=== PATIENT | male | born 1995 | race Caucasian/White ===

== ENCOUNTER → 2020-10-05 10:27 | Outpatient (BNVA) | payer OTHER, SELFPAY | PROVIDERS: Family Provider Nurse Practitioner; PCP Nurse Practitioner; Visit Provider Nurse Practitioner Family | DX: Z20.828 Contact with and (suspected) exposure to other viral communicable diseases (principal) | CPT/HCPCS: 87635 ==

== ENCOUNTER 2021-02-02 15:23 | Emergency (ER) | payer OTHER, SELFPAY ==
[2021-02-02 15:32] VITALS: BP 155/88; PULSE 96; RESP 18; TEMP 36.8; O2SAT 100; BMI 20.9
--- NOTE | 2021-02-02 17:22 | W.ED.WOUNDLC ---
HPI - Wound/Laceration General: Chief Complaint: Wound/Laceration Stated Complaint: l arm wound/laceration Time Seen by Provider: 02/02/21 16:03 Source: patient Mode of arrival: ambulatory Limitations: no limitations History of Present Illness: HPI narrative: Patient is a 25 year old male who presents to the ED with left arm lacerations. He states that he cut himself while cooking more than once. It is unlikely that this is a true account of the events, however he denied suicidal or homicidal ideation. He is here to have his wound evaluated and cared for. Place: home Patient tetanus UTD: No Context: accidental Associated symptoms: Denies chills, fever(s), foreign body sensation, inability to move, nausea, numbness, pain, syncope or vomiting Review of Systems General: Reports: 10 or more systems reviewed and unremarkable except in HPI and below Const: Denies: fever(s) or chills Card: Denies: syncope GI: Denies: nausea or vomiting PFS ED PFSH: Family History (Reviewed 02/20/21 @ 10:54 by Juan Diego Denise MD, [facility] [place]) Other Diabetes Social History (Reviewed 02/20/21 @ 10:54 by Juan Diego Denise MD, [facility] [place]) Smoking and tobacco status: current every day smoker Alcohol intake: current Alcohol intake frequency: holidays/special occasions only Physical Exam Const: COMMON NORMALS: no acute distress, average body habitus, patient oriented x3, no limitations, healthy appearing, alert and well nourished Neck/C-Spine: COMMON NORMALS: no meningeal signs and no JVD Resp: COMMON NORMALS: normal respiratory effort, No retractions, No use of accessory muscles, clear to auscultation bilaterally and percussion normal AUSCULTATION: clear to auscultation bilaterally PERCUSSION: percussion normal Cardio: COMMON NORMALS: no JVD, regular rate, regular rhythm, S1 normal heart sound present, S2 normal heart sound present, No gallops present (Cardio), No clicks present (Cardio), No murmurs present (Cardio), No rub (Cardio) and Peripheral pulses 2+ throughout RATE: regular rate RHYTHM: regular rhythm HEART SOUNDS: S1 normal heart sound present and S2 normal heart sound present PERIPHERAL PULSES: Peripheral pulses 2+ throughout GI: COMMON NORMALS: Normal to inspection, nondistended, normoactive bowel sounds present, Soft to palpation, non-tender, No hepatosplenomegaly present, no masses and no bruits PALPATION: Yes Soft to palpation and Yes No hepatosplenomegaly present Extremity: COMMON NORMALS: normal to inspection, full ROM, capillary refill normal, no calf tenderness and no pedal edema Neuro: COMMON NORMALS: patient oriented x3 SENSORIUM/ORIENTATION: Yes alert MENINGEAL SIGNS: Yes no meningeal signs Skin: COMMON NORMALS: no rashes or lesions noted, no wounds, turgor normal, no jaundice, no petechiae and no mottling GENERAL SKIN EXAM: no rashes or lesions noted and turgor normal TRAUMA: laceration irregular, involves subcutaneous tissue, involves muscle tissue, motor nerve function intact and sensation intact; no pulsatile bleeding Procedures Laceration Laceration 1: Site: upper extremity Side (If applicable): left Description: irregular Depth: involves muscle layer Local Anesthetic: lidocaine 1% Amount of anesthesia used (mL): 10 Pre-repair: wound explored and irrigated extensively Skin layer closed with: nylon Size (cm): 4-0 Number of sutures: 10 Technique: simple, interrupted Subcutaneous layer closed with: vicryl Size: 4-0 Number of sutures: 3 Technique: simple, interrupted Muscle layer closed with: vicryl Size: 4-0 Number of sutures: 2 Course Reevaluation(s): Reevaluation #1: Wound care instructions given to the patient. He voiced understanding and all questions answered. Time: 17:22 Vital Signs: Vital signs: Vital Signs Temperature 98.2 F 02/02/21 17:54 Pulse Rate 96 02/02/21 15:32 Respiratory Rate 18 02/02/21 17:54 Blood Pressure 155/88 02/02/21 15:32 Pulse Oximetry 100 02/02/21 17:54 MDM - Wound/Laceration MDM Narrative: Medical decision making narrative: Patient who presented with an accidental laceration to his left forearm. Wounds were thoroughly irrigated, cleaned and the wounds closed. Wound care instructions given to him. He was given a dose of tetanus vaccine in the ED. Medical Records: Attestation: I reviewed the patient's medical records. Discharge Plan Discharge Patient Disposition: Home Clinical Impression: Forearm laceration Condition: Stable Discharge Orders: Discharge ED (Routine); Ordered 02/02/21 Ordered By: Juan Diego Denise Discharge Diet: Usual diet Discharge Activity: Increase activity as tolerated Patient Instructions: Suture Care (ED), Laceration (ED) Activity Restrictions/Additional Instructions: Return for any new or worsening symptoms. Follow-up with your primary care provider within 3 days for wound evaluation. Have the stitches taken out in 10 to 14 days. Take the antibiotic as prescribed as prophylaxis for infection. No lifting greater than 10 pounds over the next 1 week. Stand Alone Forms: Work/School Release Coding Level of Care Code ED Recreational Counselor for Georges Singh
[2021-02-02] MEDS: tetanus-dipt-pertussis 0.5 mL SDV IM (17:44)
[2021-02-02 17:54] VITALS: RESP 18; TEMP 36.8; O2SAT 100
== END 2021-02-02 17:55 | disposition home or self-care (01) ==
PROVIDERS: Emergency Provider Family Medicine
DX: S51.812A Laceration without foreign body of left forearm, initial encounter (principal); F17.210 Nicotine dependence, cigarettes, uncomplicated; W26.9XXA Contact with unspecified sharp object(s), initial encounter; Z23 Encounter for immunization
CPT/HCPCS: 13121; 13122; 90471; 90715; 99283

== ENCOUNTER 2021-12-29 20:48 | Emergency (ER) | payer SELFPAY ==
--- NOTE | 2021-12-29 20:51 | USR_ITS ---
PROCEDURE INFORMATION: Exam: US Scrotum Exam date and time: 12/29/2021 9:23 PM Age: 26 years old Clinical indication: Scrotum pain; Additional info: R testicle pain TECHNIQUE: Imaging protocol: Real-time ultrasound of the scrotum and contents with color Doppler and image documentation. COMPARISON: CT abdomen pelvis w con* [id number] 04/29/2019 10:49 PM FINDINGS: Right testicle: No mass. No torsion. Vascularity is present. Possibly mild hypervascularity. Left testicle: Normal. No mass. No torsion. Normal vascular flow. Epididymides: Mild thickening with hypervascularity of the right epididymis. Unremarkable left epididymis. Scrotum: Small volume right scrotum hydrocele simple appearance. US/US scrotum [id number] IMPRESSION: 1. Suspect right scrotum epididymitis. Orchitis not excluded. 2. Negative for testicular torsion.
[2021-12-29 20:55] VITALS: BP 138/81; PULSE 81; RESP 16; TEMP 36.6; O2SAT 95; BMI 21.6
--- NOTE | 2021-12-29 21:16 | W.ED.MALEGU ---
HPI - Male Genitourinary General: Chief complaint: Urogenital-Male Stated complaint: R testicle pain and swelling Time Seen by Provider: 12/29/21 21:11 Source: patient Mode of arrival: ambulatory Limitations: no limitations History of Present Illness: 26-year-old male states that he was lifting a heavy wench 3 days ago and felt like he strained his right groin. Since then he states been having increasing right groin and testicle pain. States today is testicles became quite swollen and increasingly tender and painful. States pain is sharp in nature and rates it a 8 out of 10 denies any dysuria or discharge denies any fevers. Associated symptoms: Deny nausea or vomiting Review of Systems Const: Denies: fever(s), chills, body aches or change in appetite Eyes: Denies: blurry vision or eye discomfort ENMT: Denies: throat pain or dental pain Card: Denies: chest pain Resp: Denies: dyspnea GI: Denies: abdominal pain, nausea, vomiting or diarrhea : Reports: testicular pain Musc: Denies: neck pain or back pain Skin/Breast: Denies: rash Neuro: Denies: headache(s) Psych: Denies: depression Benjamin/Lymph: Denies: easy bruising All/Imm: Denies: urticaria PFSH ED PFSH: Family History Other Diabetes Social History Smoking and tobacco status: current every day smoker Alcohol intake: current Alcohol intake frequency: holidays/special occasions only Physical Exam Const: COMMON NORMALS: no acute distress, patient oriented x3 and healthy appearing HENMT: COMMON NORMALS: normocephalic and atraumatic HEAD & SCALP: normocephalic and atraumatic Eye: COMMON NORMALS: Equal, round and reactive pupils present and EOMs intact bilaterally PUPIL: Yes Equal, round and reactive pupils present Neck/C-Spine: COMMON NORMALS: full ROM and supple Chest: COMMONS NORMALS: normal inspection of the chest and normal palpation of entire chest wall Resp: COMMON NORMALS: normal respiratory effort, No retractions, No use of accessory muscles and clear to auscultation bilaterally AUSCULTATION: clear to auscultation bilaterally Cardio: COMMON NORMALS: regular rate, regular rhythm and No murmurs present (Cardio) RATE: regular rate RHYTHM: regular rhythm GI: COMMON NORMALS: Normal to inspection, nondistended, normoactive bowel sounds present, Soft to palpation, non-tender and no masses PALPATION: Yes Soft to palpation : OTHER: Swelling along with tenderness to right testicle Extremity: COMMON NORMALS: normal to inspection and full ROM Neuro: COMMON NORMALS: patient oriented x3, moves all extremities and no focal motor deficits Psych: COMMON NORMALS: mental status grossly normal, Normal thought process present and cooperative THOUGHT PROCESS: Normal thought process present Skin: COMMON NORMALS: no rashes or lesions noted and no wounds GENERAL SKIN EXAM: no rashes or lesions noted Course Vital Signs: Vital signs: Vital Signs Temperature 97.8 F 12/29/21 20:55 Pulse Rate 81 12/29/21 20:55 Respiratory Rate 16 12/29/21 20:55 Blood Pressure 138/81 12/29/21 20:55 Pulse Oximetry 95 12/29/21 20:55 MDM - Male Medical Decision Making Patient presents here with right testicle pain ultrasound here does show epididymitis likely causing his pain no signs of torsion we will place him on antibiotics pain meds given follow-up with urology he is to return if worsening he understands agrees to plan. Lab Data : 12/29/21 21:19 12/29/21 21:19 Radiology Impressions Scrotum Ultrasound 12/29/21 20:51 IMPRESSION: 1. Suspect right scrotum epididymitis. Orchitis not excluded. 2. Negative for testicular torsion. Laboratory Results WBC 11.8 10^3/uL (4.0-10.0) H 12/29/21 21:19 RBC 5.32 10^6/uL (4.1-5.3) H 12/29/21 21:19 Hgb 15.9 g/dL (11.7-16.6) 12/29/21 21: Hct 47.8 % (42.0-52.0) 12/29/21 21:19 MCV 89.8 fl (80-94) 12/29/21 21: MCH 29.9 pg (28.0-34.0) 12/29/21 21: MCHC 33.3 g/dL (30.0-36.0) 03/21/22 21:19 RDW 13.2 % (12.1-15.1) 12/29/21 21:19 Plt Count 302 10^3/cmm (130-400) 12/29/21 21:19 MPV 10.1 fL (7.4-10.4) 12/29/21 21:19 Neut % (Auto) 66.0 % 12/29/21 21:19 Lymph % (Auto) 21.2 % 12/29/21 21:19 Lander % (Auto) 9.3 % 12/29/21 21:19 Eos % (Auto) 1.3 % 12/29/21 21:19 Baso % (Auto) 0.8 % 12/29/21 21:19 Neut # (Auto) 7.80 10^3/uL (1.8-7.7) H 12/29/21 21:19 Lymph # (Auto) 2.5 10^3/uL (0.8-4.8) 12/29/21 21:19 Lander # (Auto) 1.1 10^3/uL (0.2-0.9) H 12/29/21 21:19 Eos # (Auto) 0.2 10^3/uL (0.0-0.8) 12/29/21 21:19 Baso # (Auto) 0.1 10^3/uL (0.0-0.1) 12/29/21 21:19 Nucleated RBC % (auto) 0 % 12/29/21 21: Nucleated RBCs # 0.0 /100WBC 12/29/21 21:19 Sodium 137 mmol/L (136-145) 12/29/21 21:19 Potassium 4.4 mmol/L (3.5-5.1) 12/29/21 21:19 Chloride 97 mmol/L (98-107) L 12/29/21 21:19 Carbon Dioxide 30 mmol/L (22-29) H 12/29/21 21:19 Anion Gap 14.4 (5-19) 12/29/21 21:19 BUN 9 mg/dL (6-20) 12/29/21 21:19 Creatinine 1.0 mg/dL (0.7-1.2) 12/29/21 21:19 GFR Calculation 89.6 mL/min (90-130) L 12/29/21 21:19 Glucose 87 mg/dL (65-115) 12/29/21 21:19 Calculated Osmolality 282 mOsm/kg (285-295) L 12/29/21 21:19 Calcium 9.5 mg/dL (8.5-10.5) 12/29/21 21:19 Total Bilirubin 0.2 mg/dL (0.15-1.2) 12/29/21 21:19 AST 15 U/L (0-40) 12/29/21 21:19 ALT 12 U/L (0-41) 12/29/21 21:19 Alkaline Phosphatase 108 IU/L (40-130) 12/29/21 21:19 Total Protein 8.0 g/dL (6.6-8.7) 12/29/21 21:19 Albumin 4.6 g/dL (3.5-5.2) 12/29/21 21:19 Globulin 3.4 g/dL (1.3-4.6) 12/29/21 21:19 Discharge Plan Discharge Patient Disposition: Home Clinical Impression: Epididymitis Condition: Stable Prescriptions: New hydrocodone-acetaminophen 5-325 mg tablet 1 tab PO Q6H PRN (Reason: pain) Qty: 14 0RF doxycycline hyclate 100 mg tablet 100 mg PO BID 10 Days Qty: 20 0RF ondansetron 4 mg tablet,disintegrating 4 mg PO Q6H PRN (Reason: nausea and vomiting) Qty: 14 0RF Discharge Orders: Discharge ED (Routine); Ordered 12/29/21 Ordered By: Dora Valdivia Referrals: Nav Mcduffie MD [Physician] - 1-3 days Discharge Diet: Advance as tolerated Discharge Activity: Resume usual activity Patient Instructions: Epididymitis (ED), Opioid Safety Coding Level of Care Code ED Wheel Braider for Chg Fwd Exam Comprehensive
[2021-12-29 21:25] LABS: Basophils # 0.1 10^3/uL (0.0-0.1); Basophils % 0.8 %; Eosinophils # 0.2 10^3/uL (0.0-0.8); Eosinophils % 1.3 %; Hematocrit 47.8 % (42.0-52.0); Hemoglobin 15.9 g/dL (11.7-16.6); Lymphocytes # 2.5 10^3/uL (0.8-4.8); Lymphocytes % 21.2 %; Mean Corpuscular HGB Conc 33.3 g/dL (30.0-36.0); Mean Corpuscular Hemoglobin 29.9 pg (28.0-34.0); Mean Corpuscular Volume 89.8 fl (80-94); Mean Platelet Volume 10.1 fL (7.4-10.4); Monocytes # 1.1 10^3/uL (0.2-0.9); Monocytes % 9.3 %; Nucleated Red Blood Cells % 0 %; Platelet Count 302 10^3/cmm (130-400); Red Blood Count 5.32 10^6/uL (4.1-5.3); Red Cell Distribution Width 13.2 % (12.1-15.1); White Blood Count 11.8 10^3/uL (4.0-10.0)
[2021-12-29 21:30] VITALS: RESP 18
[2021-12-29] MEDS: ondansetron 2 mg/ML SDV 2 mL 4 MG IVP (21:30)
[2021-12-29] MEDS: morphine 4 mg/mL SDV 1 mL IVP (21:30)
[2021-12-29 21:46] LABS: Alanine Aminotransferase 12 U/L (0-41); Albumin Level 4.6 g/dL (3.5-5.2); Alkaline Phosphatase 108 IU/L (40-130); Anion Gap 14.4 (5-19); Aspartate Amino Transferase 15 U/L (0-40); Blood Urea Nitrogen 9 mg/dL (6-20); Calcium 9.5 mg/dL (8.5-10.5); Carbon Dioxide 30 mmol/L (22-29); Chloride 97 mmol/L (98-107); Globulin 3.4 g/dL (1.3-4.6); Glomerular Filtration Rate 89.6 mL/min (90-130); Glucose 87 mg/dL (65-115); Osmolality Calculated 282 mOsm/kg (285-295); Potassium 4.4 mmol/L (3.5-5.1); Sodium 137 mmol/L (136-145); Total Bilirubin 0.2 mg/dL (0.15-1.2)
[2021-12-29] MEDS: doxycycline 100 mg Tablet PO (22:21)
--- NOTE | 2021-12-30 09:56 | DCPLANNER ---
Addendum entered by Sherrell Velarde 03/06/22 18:01: Patient had a follow up appointment scheduled for 02.20.22 with urology - patient did not attend appointment. Addendum entered by Sherrell Velarde 12/31/21 11:15: Patient has a follow up appointment scheduled for Sunday, February 20, 2022 at 8:[address] Mcduffie. Clinic will call patient with appointment information. Original Note: police manager had message to schedule a follow up appointment for patient with Dr. Mcduffie. police manager emailed patients information to Nathaniel Johnson and Julie in the office of Dr. Mcduffie. Patients information will be printed and reviewed. Clinic will call patient with appointment information.
== END 2021-12-29 22:21 | disposition home or self-care (01) ==
PROVIDERS: Emergency Provider Emergency Medicine
DX: N45.1 Epididymitis (principal); F17.210 Nicotine dependence, cigarettes, uncomplicated
CPT/HCPCS: 76870; 80053; 85025; 99282; J2270; J2405

== ENCOUNTER 2022-06-22 12:56 | Emergency (ER) | payer SELFPAY ==
[2022-06-22 13:00] VITALS: BP 123/73; PULSE 84; RESP 16; TEMP 36.9; O2SAT 99; BMI 20.9
--- NOTE | 2022-06-22 13:28 | XR_ITS ---
WS: [id number] XR forearm LT 2V [id number] REASON FOR EXAM: fall injury from skateboarding FINDINGS: Elbow as previously reported. Remainder of the radius and ulna are intact. No distal radioulnar dislocation. XR/XR forearm LT 2V [id number] IMPRESSION: No acute abnormality.
--- NOTE | 2022-06-22 13:28 | XR_ITS ---
WS: [id number] XR elbow LT min 3V* [id number] REASON FOR EXAM: fall injury from skateboarding FINDINGS: No evidence of joint effusion. Joint spaces of the elbow joint are well preserved. No fracture identified. Radiodense angular presumed foreign body in the soft tissue dorsal to the proximal ulna. XR/XR elbow LT min 3V* [id number] IMPRESSION: No fracture or dislocation. Presumed radiopaque foreign body as above.
--- NOTE | 2022-06-22 13:30 | W.ED.EXTPRO ---
Documented by User: [email or web address] Feldman 06/23/22 07:29 HPI - Extremity Problem General: Chief complaint: Extremity Injury, Upper Stated complaint: Left arm injury, elbow lac Time Seen by Provider: 06/22/22 13:14 History of Present Illness: Patient is a 26-year-old male that comes to the ED with left elbow injury. Patient says approximately 2 days ago he was riding on a skateboard down a hill and fell off skateboard hitting left elbow on the ground. Denies any head trauma or loss of consciousness. He is now having pain and swelling in the left elbow and left forearm. He rates his pain a 6 out of 10 but it increases if he does any movement with left arm. He has an abrasion to his left elbow. Patient reports pulling out some rocks/gravel from wound and then cleaned with hydrogen peroxide and then put antibiotic ointment on it. Its starting to have some surrounding redness and a little bit of purulent drainage. Patient states he is up-to-date on his tetanus. Associated symptoms: Deny chest pain, fever(s) or rash Review of Systems Const: Denies: fever(s), chills or fatigue Eyes: Denies: change in vision or eye discomfort ENMT: Denies: throat pain, odynophagia, nasal discharge or nasal congestion Card: Denies: chest pain, palpitations, edema, swelling of feet/ankles, dyspnea on exertion or orthopnea Resp: Denies: dyspnea, productive cough or non-productive cough GI: Denies: abdominal pain, nausea, vomiting, diarrhea, constipation or hematochezia : Denies: flank pain, difficulty urinating, dysuria or hematuria Musc: Reports: extremity pain (Left elbow and forearm) and extremity swelling (Left elbow and forearm); Denies: neck pain or back pain Skin/Breast: Reports: new lesions (Left elbow abrasion); Denies: rash Neuro: Denies: headache(s), numbness in extremities or weakness in extremities [facility] ED PFSH: Medical History Varicocele Family History Mother No problems noted. Father , at age 56 Cancer Other Diabetes Social History Smoking and tobacco status: current every day smoker Alcohol intake: current Alcohol intake frequency: 0-2 Drinks per Day Lives independently: No Household members: family Housing: House Marital status: Single Number of children: 0 Current occupational status: employed History of recent travel: No Physical Exam Const: COMMON NORMALS: patient oriented x3, healthy appearing and alert GENERAL APPEARANCE: cooperative and comfortable HENMT: COMMON NORMALS: normocephalic HEAD & SCALP: normocephalic MOUTH: Normal oral and palatal mucosa present THROAT: posterior oropharynx normal and uvula midline Neck/C-Spine: COMMON NORMALS: supple GENERAL: Yes normal visual inspection Resp: COMMON NORMALS: normal respiratory effort, No retractions, No use of accessory muscles and clear to auscultation bilaterally AUSCULTATION: clear to auscultation bilaterally Cardio: COMMON NORMALS: regular rate, regular rhythm, S1 normal heart sound present, S2 normal heart sound present, No gallops present (Cardio), No clicks present (Cardio), No murmurs present (Cardio) and Peripheral pulses 2+ throughout RATE: regular rate RHYTHM: regular rhythm HEART SOUNDS: S1 normal heart sound present and S2 normal heart sound present PERIPHERAL PULSES: Peripheral pulses 2+ throughout GI: COMMON NORMALS: Normal to inspection, nondistended, normoactive bowel sounds present, Soft to palpation, non-tender and no masses PALPATION: Yes Soft to palpation : COMMON NORMALS: Yes no CVA tenderness BLADDER/KIDNEY EXAM: Yes no CVA tenderness Back/Pelvis: COMMON NORMALS: no CVA tenderness Extremity: NARRATIVE EXTREMITY EXAM: Left elbow?swelling and tenderness around olecranon process of elbow. Limited range of motion due to pain. Neurovascular tact distally. GENERAL: Yes normal exam except as noted Neuro: COMMON NORMALS: patient oriented x3 SENSORIUM/ORIENTATION: Yes alert GAIT: Yes Normal gait present Skin: NARRATIVE SKIN EXAM: Superficial abrasion to left elbow?surrounding erythema and warmth noted. Small amount of purulent drainage present. Findings suggestive of some developing cellulitis. GENERAL SKIN EXAM: dry skin Course Vital Signs: Vital signs: Vital Signs Temperature 98.4 F 06/22/22 13:00 Pulse Rate 84 06/22/22 13:00 Respiratory Rate 16 06/22/22 13:00 Blood Pressure 123/73 06/22/22 13:00 Pulse Oximetry 99 06/22/22 13:00 Oxygen Delivery Me thod 06/22/22 13:00 MDM - Extremity (Nontraumatic) Medical Decision Making Patient is a 26-year-old male comes to the ED with left elbow injury. Injury occurred 2 days ago and patient says he was riding a skateboard and fell landing on left elbow. He has some pain, swelling and an abrasion to the left elbow. He reports pulling some rocks/gravel out of wound. Vitals are stable. Patient has some left elbow swelling, erythema and tenderness. He is neurovascular tact distally. Abrasion wound on left elbow appears like it is developing cellulitis. X-ray of left elbow on left forearm showed no acute fractures or dislocations but did note a radiopaque foreign body in soft tissue of elbow area. I placed an order with case management for patient to be referred to orthopedic doctor for follow-up and management of foreign body left elbow. He was diagnosed with cellulitis of the left elbow and foreign body in skin of left elbow. He was discharged home with a prescription for cephalexin. Return to ED precautions given. Patient understood and agreed with plan. Lab Data Radiology Impressions Elbow X-Ray 06/22/22 13:28 IMPRESSION: No fracture or dislocation. Presumed radiopaque foreign body as above. Forearm X-Ray 06/22/22 13:28 IMPRESSION: No acute abnormality. Discharge Plan Discharge Patient Disposition: Home Clinical Impression: Foreign body in skin of left elbow region, Cellulitis of left elbow Condition: Stable Prescriptions: New cephalexin 500 mg capsule 500 mg PO Q6H 7 Days Qty: 28 0RF No Action doxycycline hyclate 100 mg tablet 100 mg PO BID Qty: 60 1RF hydrocodone-acetaminophen 5-325 mg tablet 1 tab PO Q6H PRN (Reason: pain) Qty: 14 0RF ondansetron 4 mg tablet,disintegrating 4 mg PO Q6H PRN (Reason: nausea and vomiting) Qty: 14 0RF Discharge Orders: Discharge ED (Routine); Ordered 06/22/22 Ordered By: Guy Kendrick Referrals: Nav Mcduffie MD [Primary Care Provider] - Discharge Diet: Regular Discharge Activity: Increase activity as tolerated Patient Instructions: Soft Tissue Foreign Body (ED), Cellulitis (ED) Activity Restrictions/Additional Instructions: Follow-up with medical provider as directed. Case management should be contacting you in the next several days to set up an appointment with Ortho for follow-up on left elbow foreign body. Clean abrasion on elbow daily with soap and water and apply triple antibiotic ointment and cover with bandage. Take medications as prescribed. Return to the ER or your medical provider if condition worsens. Please read and understand discharge instructions. Thank you for choosing [facility] for your healthcare needs today. Please realize this is an emergency room and that we are providing you with a medical screening exam and this may not be complete and all inclusive of all the testing and or work up that you may need to determine your ailment or severity of your illness. It is very important that you follow up as instructed or that you return to the Emergency Department should you have concerns or if your condition changes or worsens in any way. Coding Level of Care Code ED Fruit Or Nut Farmer for Chg Fwd Exam Comprehensive Documented by User: Juan Almanzar DO 06/23/22 13:36 HPI - Extremity Problem General: Chief complaint: Extremity Injury, Upper Stated complaint: Left arm injury, elbow lac Time Seen by Provider: 06/22/22 13:14 [facility] ED PFSH: Medical History Varicocele Family History Mother No problems noted. Father , at age 56 Cancer Other Diabetes Social History Smoking and tobacco status: current every day smoker Alcohol intake: current Alcohol intake frequency: 0-2 Drinks per Day Lives independently: No Household members: family Housing: House Marital status: Single Number of children: 0 Current occupational status: employed History of recent travel: No Course Vital Signs: Vital signs: Vital Signs Temperature 98.4 F 06/22/22 13:00 Pulse Rate 84 06/22/22 13:00 Respiratory Rate 16 06/22/22 13:00 Blood Pressure 123/73 06/22/22 13:00 Pulse Oximetry 99 06/22/22 13:00 Oxygen Delivery Me thod 06/22/22 13:00 MDM - Extremity (Nontraumatic) Medical Decision Making Patient is a 26-year-old male comes to the ED with left elbow injury. Injury occurred 2 days ago and patient says he was riding a skateboard and fell landing on left elbow. He has some pain, swelling and an abrasion to the left elbow. He reports pulling some rocks/gravel out of wound. Vitals are stable. Patient has some left elbow swelling, erythema and tenderness. He is neurovascular tact distally. Abrasion wound on left elbow appears like it is developing cellulitis. X-ray of left elbow on left forearm showed no acute fractures or dislocations but did note a radiopaque foreign body in soft tissue of elbow area. I placed an order with case management for patient to be referred to orthopedic doctor for follow-up and management of foreign body left elbow. He was diagnosed with cellulitis of the left elbow and foreign body in skin of left elbow. He was discharged home with a prescription for cephalexin. Return to ED precautions given. Patient understood and agreed with plan. Chart reviewed and patient discussed with midlevel. Agree with assessment and plan. Lab Data Radiology Impressions Elbow X-Ray 06/22/22 13:28 IMPRESSION: No fracture or dislocation. Presumed radiopaque foreign body as above. Forearm X-Ray 06/22/22 13:28 IMPRESSION: No acute abnormality. Discharge Plan Discharge Patient Disposition: Home Clinical Impression: Foreign body in skin of left elbow region, Cellulitis of left elbow Condition: Stable Prescriptions: New cephalexin 500 mg capsule 500 mg PO Q6H 7 Days Qty: 28 0RF No Action doxycycline hyclate 100 mg tablet 100 mg PO BID Qty: 60 1RF hydrocodone-acetaminophen 5-325 mg tablet 1 tab PO Q6H PRN (Reason: pain) Qty: 14 0RF ondansetron 4 mg tablet,disintegrating 4 mg PO Q6H PRN (Reason: nausea and vomiting) Qty: 14 0RF Discharge Orders: Discharge ED (Routine); Ordered 06/22/22 Ordered By: Guy Kendrick Referrals: Nav Mcduffie MD [Primary Care Provider] - Discharge Diet: Regular Discharge Activity: Increase activity as tolerated Patient Instructions: Soft Tissue Foreign Body (ED), Cellulitis (ED) Activity Restrictions/Additional Instructions: Follow-up with medical provider as directed. Case management should be contacting you in the next several days to set up an appointment with Ortho for follow-up on left elbow foreign body. Clean abrasion on elbow daily with soap and water and apply triple antibiotic ointment and cover with bandage. Take medications as prescribed. Return to the ER or your medical provider if condition worsens. Please read and understand discharge instructions. Thank you for choosing [facility] for your healthcare needs today. Please realize this is an emergency room and that we are providing you with a medical screening exam and this may not be complete and all inclusive of all the testing and or work up that you may need to determine your ailment or severity of your illness. It is very important that you follow up as instructed or that you return to the Emergency Department should you have concerns or if your condition changes or worsens in any way. Coding Level of Care Code ED Fruit Or Nut Farmer for Georges Singh Exam Comprehensive
[2022-06-22] MEDS: cephALEXin 500 mg Capsule PO (13:44)
[2022-06-22] MEDS: HYDROcodone-acetaminophen 7.5-325 mg Tablet 1 TAB PO (13:44)
--- NOTE | 2022-06-23 14:30 | DCPLANNER ---
Addendum entered by Sherrell Velarde 06/29/22 15:23: Patient had a follow up appointment scheduled with ortho - patient did attend appointment. Addendum entered by Sherrell Velarde 06/24/22 12:32: Patient has a follow up appointment scheduled for Sunday June 26, [address]22 at 9:[address] Gutierres at ortho. Clinic will call patient with appointment information. Original Note: manager wound had message to schedule a follow up appointment for patient with ortho. manager wound sent patients information to the front office staff at ortho. Patients information will be printed and reviewed. Clinic will call patient with appointment information.
== END 2022-06-22 14:40 | disposition home or self-care (01) ==
PROVIDERS: Emergency Provider Physician Assistant; PCP Urology
DX: M79.5 Residual foreign body in soft tissue (principal); L03.114 Cellulitis of left upper limb; F17.210 Nicotine dependence, cigarettes, uncomplicated
CPT/HCPCS: 73080; 73090; 99283

== ENCOUNTER → 2023-01-12 09:44 | Outpatient (BNVA) | payer SELFPAY | PROVIDERS: PCP Urology; Visit Provider Nurse Practitioner Family | DX: R30.0 Dysuria (principal); R39.9 Unspecified symptoms and signs involving the genitourinary system | CPT/HCPCS: 81000; 87491; 87591 ==

== ENCOUNTER → 2023-05-25 10:29 | Outpatient (BNVA) | payer SELFPAY | PROVIDERS: PCP Urology; Visit Provider Student in an Organized Health Care Education/Training Program | DX: S59.902A Unspecified injury of left elbow, initial encounter; V00.131A Fall from skateboard, initial encounter; M79.5 Residual foreign body in soft tissue | CPT/HCPCS: 73070 ==

== ENCOUNTER 2023-08-18 21:45 | Emergency (ER) | payer SELFPAY ==
[2023-08-18 21:49] VITALS: BP 124/81; PULSE 80; RESP 16; TEMP 36.6; O2SAT 98; BMI 22.3
--- NOTE | 2023-08-18 22:04 | ED_ITS ---
HPI - Skin/Abscess/Foreign Bdy General: Chief complaint: Skin/Abscess/Foreign Body Stated complaint: Cist on Rt side of Neck Time Seen by Provider: 08/18/23 22:04 History of Present Illness: 28-year-old male patient comes in for swelling to the right posterior neck. Patient reports having a pimple-like lesion to his neck and had someone tried to pop it this evening and since then he has had increasing swelling to the area. Patient appears nontoxic. Patient appears in mild to moderate pain. Associated symptoms: Deny fever(s) Review of Systems General: Reports: 10 or more systems reviewed and unremarkable except in HPI and below Const: Denies: fever(s) Skin/Breast: Reports: changing lesions PFSH ED PFSH: Medical History Varicocele Family History Mother No problems noted. Father , at age 56 Cancer Other Diabetes Social History Smoking and tobacco/nicotine status: never used tobacco/nicotine Alcohol intake: current Alcohol intake frequency: 0-2 Drinks per Day Substance/Drug Use: current Lives independently: No Household members: family Housing: House Marital status: Single Number of children: 0 Current occupational status: employed Physical Exam Const: COMMON NORMALS: alert HENMT: COMMON NORMALS: normocephalic HEAD & SCALP: normocephalic MOUTH: Normal oral and palatal mucosa present Neck/C-Spine: CERVICAL SPINE: Yes cervical ROM normal Resp: COMMON NORMALS: clear to auscultation bilaterally AUSCULTATION: clear to auscultation bilaterally Cardio: COMMON NORMALS: regular rate RATE: regular rate GI: COMMON NORMALS: non-tender : COMMON NORMALS: Yes no CVA tenderness BLADDER/KIDNEY EXAM: Yes no CVA tenderness Back/Pelvis: COMMON NORMALS: no CVA tenderness Extremity: COMMON NORMALS: full ROM Neuro: SENSORIUM/ORIENTATION: Yes alert Skin: LESIONS: lesion noted (Right posterior neck. Crusted lesion with soft tissue swelling) Course Vital Signs: Vital signs: Vital Signs Temperature 97.8 F 08/18/23 21:49 Pulse Rate 80 08/18/23 21:49 Respiratory Rate 16 08/18/23 21:49 Blood Pressure 124/81 08/18/23 21:49 Pulse Oximetry 98 08/18/23 21:49 Oxygen Delivery Me thod Room Air 08/18/23 21:49 MDM - Skin/Abscess/Foreign Bdy Medicial Decision Making Patient comes in due to a increased discomfort and pain after having someone in try to drain a pimple on the posterior neck. On exam patient has a crusted lesion with some surrounding erythema and swelling. No ballottement or fluctuance is noted to the area. Differential diagnosis includes abscess, folliculitis, cellulitis. We will treat patient for folliculitis/cellulitis with Bactrim and mupirocin ointment. Instructed patient not to poke or prod at the lesion. If lesion seems to become more fluid-filled he should return to the ER for to have it evaluated further and possibly drained. Patient reported understanding of care plan and need for follow-up or return to the ER. No radiology studies performed this visit Discharge Plan Discharge Patient Disposition: Home Clinical Impression: Folliculitis Condition: Stable Prescriptions: New sulfamethoxazole-trimethoprim 800-160 mg tablet 1 tab PO BID 7 Days Qty: 14 0RF ibuprofen 800 mg tablet 800 mg PO Q8H PRN (Reason: pain and inflammation) Qty: 20 0RF hydrocodone-acetaminophen 5-325 mg tablet 1 tab PO Q8H PRN (Reason: pain (scale score 7-10)) Qty: 5 0RF No Action promethazine-DM 6.25-15 mg/5 mL syrup 5 ml PO Q4H PRN (Reason: cough) Qty: 118 0RF Rx Instructions: Do not exceed more than 30ml/24hour period (6 doses) doxycycline hyclate 100 mg tablet 100 mg PO BID 7 Days Qty: 14 0RF Discharge Orders: Discharge ED (Routine); Ordered 08/18/23 Ordered By: Gen Palacios Discharge Diet: Usual diet Discharge Activity: Increase activity as tolerated Patient Instructions: Folliculitis (ED) Activity Restrictions/Additional Instructions: Apply mupirocin antibiotic ointment twice daily to the lesions until healed. Take oral antibiotic sulfamethoxazole?trimethoprim 1 tablet twice daily for 7 days. Use ibuprofen 800 mg 1 tablet 3 times a day as needed for pain and inflammation. Use hydrocodone for severe pain. Drink plenty of water with medications. Follow-up with primary care for recheck. Return to ED for worsening symptoms such as high fever, increasing swelling and fluid to the lesion. Or new concerns. Coding Level of Care Code ED Cloud Consultant for Georges Singh
[2023-08-18] MEDS: HYDROcodone-acetaminophen 5-325 mg Tablet 1 TAB PO (22:26)
[2023-08-18] MEDS: mupirocin oint 22 gm 1 APPLIC TOPICAL (22:26)
[2023-08-18] MEDS: sulfamethoxazole-trimeth DS 160-800 mg Tablet 1 TAB PO (22:26)
== END 2023-08-18 22:33 | disposition home or self-care (01) ==
PROVIDERS: Emergency Provider Nurse Practitioner Family
DX: L73.9 Follicular disorder, unspecified (principal)
CPT/HCPCS: 99283

== ENCOUNTER 2023-09-10 23:59 | Emergency (ER) | payer SELFPAY ==
[2023-09-11 00:07] VITALS: BP 151/74; PULSE 88; RESP 17; TEMP 36.9; O2SAT 98; BMI 22.3
[2023-09-11 04:07] LABS: Basophils # 0.1 10^3/uL (0.0-0.1); Basophils % 0.6 %; Eosinophils # 0.1 10^3/uL (0.0-0.8); Eosinophils % 0.6 %; Hematocrit 46.9 % (37-53); Lymphocytes # 1.6 10^3/uL (0.8-4.8); Lymphocytes % 18.3 %; Mean Corpuscular HGB Conc 33.3 g/dL (30-55); Mean Corpuscular Hemoglobin 30.2 pg (27-33); Mean Corpuscular Volume 90.9 fl (82-101); Mean Platelet Volume 10.7 fL (7.4-10.4); Monocytes # 0.7 10^3/uL (0.2-0.9); Monocytes % 8.1 %; Neutrophils # 6.22 10^3/uL (1.8-7.7); Neutrophils % 71.9 %; Nucleated Red Blood Cells % 0 %; Platelet Count 192 10^3/cmm (157-399); Red Blood Count 5.16 10^6/uL (3.85-5.65); Red Cell Distribution Width 13.6 % (12.1-15.1); White Blood Count 8.64 10^3/uL (3.29-11.43)
[2023-09-11 04:24] LABS: Alanine Aminotransferase 211 U/L (0-41); Albumin Level 4.5 g/dL (3.5-5.2); Alkaline Phosphatase 82 U/L (40-130); Anion Gap 12.9 (5-19); Aspartate Amino Transferase 88 U/L (0-40); Blood Urea Nitrogen 11 mg/dL (6-20); C Reactive Protein 48.6 mg/L (0.0-4.9); Calcium 9.3 mg/dL (8.5-10.5); Carbon Dioxide 27 mmol/L (22-29); Chloride 99 mmol/L (98-107); Globulin 3.6 g/dL (1.3-4.6); Glomerular Filtration Rate 99.8 mL/min (90-130); Glucose 83 mg/dL (65-115); Lipase 12 U/L (13-60); Osmolality Calculated 279 mOsm/kg (285-295); Potassium 3.9 mmol/L (3.5-5.1); Sodium 135 mmol/L (136-145); Total Bilirubin 0.8 mg/dL (0.15-1.2); Total Protein 8.1 g/dL (6.6-8.7)
[2023-09-11 04:42] LABS: Add Urine Microscopic? YES; Bilirubin Urine Neg (Negative); Blood Urine Neg (Negative); Glucose Urine UA Norm (Normal); Ketones Urine 2+ (Negative); Leukocyte Esterase Urine Trace (Negative); Nitrate Urine Negative (Negative); Protein Urine Trace (Negative); Urine Appearance Clear (CLEAR); Urine Color Amber (Yellow); Urobilinogen Urine 1 mg/dL (Negative); pH Urine 7 (5-7)
[2023-09-11 04:45] VITALS: RESP 18
[2023-09-11] MEDS: oxyCODONE-APAP 5-325 mg Tablet 2 TAB PO (04:45)
[2023-09-11] MEDS: ondansetron 2 mg/ML SDV 2 mL 4 MG PO (04:45)
[2023-09-11 04:49] LABS: Amphetamines Screen Urine Positive (Negative); Barbiturates Screen Urine Positive (Negative); Benzodiazepines Screen Urine Negative (Negative); Cocaine Screen Urine Negative (Negative); Opiate Screen Urine Negative (Negative); PCP Screen Urine Negative (Negative); THC Screen Urine Positive (Negative)
[2023-09-11 04:54] LABS: Mucus Urine 2+ /hpf; RBC Urine RARE /hpf (0-2); WBC Urine RARE /hpf (0-5)
[2023-09-11 04:55] LABS: Add Urine Culture? No; Sperm Urine 1+ /hpf
--- NOTE | 2023-09-11 16:11 | ED_ITS ---
HPI - Abdominal Pain 2 General: Chief Complaint: Abdominal Pain Stated Complaint: Abd pain, fever, sore throat Time Seen by Provider: 09/11/23 04:18 History of Present Illness: 28 year old males seen at urgent care to day for epigastric pain. He continues to have epigastric pain and nausea. No vomiting. No fever. He was given a GI cocktail evidently at urgent care without much improvement. No history of abdominal surgery. Associated Symptoms: Reports nausea; Denies chills, diarrhea, fever(s), hematochezia and vomiting Review of Systems 2 Const: Denies: fever(s), chills or body aches Eyes: Denies: change in vision Card: Denies: chest pain or palpitations Resp: Denies: dyspnea, productive cough, non-productive cough or wheezing GI: Reports: abdominal pain and nausea; Denies: vomiting, diarrhea or hematochezia Skin/Breast: Denies: rash Neuro: Denies: headache(s), weakness in extremities, dizziness or confusion PFSH ED 2 PFSH: Medical History Varicocele Family History Mother No problems noted. Father , at age 56 Cancer Other Diabetes Social History Smoking and tobacco/nicotine status: never used tobacco/nicotine Alcohol intake: current Alcohol intake frequency: 0-2 Drinks per Day Substance/Drug Use: current Lives independently: No Household members: family Housing: House Marital status: Single Number of children: 0 Current occupational status: employed Physical Exam 2 Const: COMMON NORMALS: no acute distress GENERAL APPEARANCE: cooperative; not ill appearing and not frail appearing HENMT: COMMON NORMALS: normocephalic, atraumatic and Normal external nose present HEAD & SCALP: normocephalic and atraumatic FACE & SINUS: normal facial exam and face symmetric NOSE: Normal external nose present Eye: COMMON NORMALS: Equal, round and reactive pupils present and EOMs intact bilaterally PUPIL: Yes Equal, round and reactive pupils present Neck/C-Spine: GENERAL: Yes trachea midline Chest: CHEST: Yes Symmetrical chest wall rise Resp: COMMON NORMALS: normal respiratory effort, No retractions, No use of accessory muscles and clear to auscultation bilaterally AUSCULTATION: clear to auscultation bilaterally Cardio: COMMON NORMALS: regular rate and regular rhythm RATE: regular rate RHYTHM: regular rhythm GI: COMMON NORMALS: Normal to inspection, nondistended, normoactive bowel sounds present PALPATION: Yes Tenderness to palpation present (GI) (epigastric) Details: Negative for RLQ Extremity: COMMON NORMALS: no pedal edema Neuro: VIOLETA COMA SCALE: document GCS findings [place] coma scale eye opening: Spontaneous Violeta coma scale verbal response: Orientated [place] coma scale motor response: Obey commands Violeta coma scale total score: 15 S ENSORY EXAM: Yes extremities (intact) Psych: COMMON NORMALS: speech normal SPEECH: Yes normal speech Skin: COMMON NORMALS: no rashes or lesions noted GENERAL SKIN EXAM: no rashes or lesions noted Course 2 Vital Signs: Vital signs: Vital Signs Temperature 98.5 F 09/11/23 00:07 Pulse Rate 88 09/11/23 00:07 Respiratory Rate 18 09/11/23 04:45 Blood Pressure 151/74 09/11/23 00:07 Pulse Oximetry 98 09/11/23 00:07 Oxygen Delivery Me thod Room Air 09/11/23 00:07 MDM - Abdominal Pain Medical Decision Making Besides epigastric tenderness, exam is not terribly remarkable. CBC is normal. BMP is not remarkable. Liver enzymes are normal. C reactive protein is 49. He has two plus ketones, but no evidence of infection on UA. Urine drug screen is positive for barbiturates, amphetamines, and marijuana. He was given pain medication, anti emetic, GI cocktail which he refused. Given epigastric pain, lack of significant serum abnormalities, and otherwise benign exam, he'll be allowed to discharge. Carafate for gastritis. He was prescribed a PPI at urgent care yesterday. Lab Data 09/11/23 03:56 09/11/23 03:56 Labs/Radiology: Laboratory Results WBC 8.64 10^3/uL (3.29-11.43) 09/11/23 03:56 RBC 5.16 10^6/uL (3.85-5.65) 09/11/23 03:56 Hgb 15.60 g/dL (11.27-16.99) 09/11/23 03:56 Hct 46.9 % (37-53) 09/11/23 03:56 MCV 90.9 fl (82-101) 09/11/23 03:56 MCH 30.2 pg (27-33) 09/11/23 03:56 MCHC 33.3 g/dL (30-55) 09/11/23 03:56 RDW 13.6 % (12.1-15.1) 09/11/23 03:56 Plt Count 192 10^3/cmm (157-399) 09/11/23 03:56 MPV 10.7 fL (7.4-10.4) H 09/11/23 03:56 Neut % (Auto) 71.9 % 09/11/23 03:56 Lymph % (Auto) 18.3 % 09/11/23 03:56 [place] % (Auto) 8.1 % 09/11/23 03:56 Eos % (Auto) 0.6 % 09/11/23 03:56 Baso % (Auto) 0.6 % 09/11/23 03:56 Neut # (Auto) 6.22 10^3/uL (1.8-7.7) 09/11/23 03:56 Lymph # (Auto) 1.6 10^3/uL (0.8-4.8) 09/11/23 03:56 [place] # (Auto) 0.7 10^3/uL (0.2-0.9) 09/11/23 03:56 Eos # (Auto) 0.1 10^3/uL (0.0-0.8) 09/11/23 03:56 Baso # (Auto) 0.1 10^3/uL (0.0-0.1) 09/11/23 03:56 Nucleated RBC % (auto) 0 % 09/11/23 03:56 Nucleated RBCs # 0.0 /100WBC 09/11/23 03:56 Sodium 135 mmol/L (136-145) L 09/11/23 03:56 Potassium 3.9 mmol/L (3.5-5.1) 09/11/23 03:56 Chloride 99 mmol/L (98-107) 09/11/23 03:56 Carbon Dioxide 27 mmol/L (22-29) 09/11/23 03:56 Anion Gap 12.9 (5-19) 09/11/23 03:56 BUN 11 mg/dL (6-20) 09/11/23 03:56 Creatinine 0.9 mg/dL (0.7-1.2) 09/11/23 03:56 GFR Calculation 99.8 mL/min (90-130) 09/11/23 03:56 Glucose 83 mg/dL (65-115) 09/11/23 03:56 Calculated Osmolality 279 mOsm/kg (285-295) L 09/11/23 03:56 Calcium 9.3 mg/dL (8.5-10.5) 09/11/23 03:56 Total Bilirubin 0.8 mg/dL (0.15-1.2) 09/11/23 03:56 AST 88 U/L (0-40) H 09/11/23 03:56 ALT 211 U/L (0-41) H 09/11/23 03:56 Alkaline Phosphatase 82 U/L (40-130) 09/11/23 03:56 C-Reactive Protein 48.6 mg/L (0.0-4.9) H 09/11/23 03:56 Total Protein 8.1 g/dL (6.6-8.7) 09/11/23 03:56 Albumin 4.5 g/dL (3.5-5.2) 09/11/23 03:56 Globulin 3.6 g/dL (1.3-4.6) 09/11/23 03:56 Lipase 12 U/L (13-60) L 09/11/23 03:56 Urine Color Jaky (Yellow) 09/11/23 04:20 Urine Appearance Clear (CLEAR) 09/11/23 04:20 Urine pH 7 (5-7) 09/11/23 04:20 Ur Specific [place] 1.010 (1.005-1.030) 09/11/23 04:20 Urine Protein Trace (Negative) 09/11/23 04:20 Urine Glucose (UA) Norm (Normal) 09/11/23 04:20 Urine Ketones 2+ (Negative) H 09/11/23 04:20 Urine Blood Neg (Negative) 09/11/23 04:20 Urine Nitrate Negative (Negative) 09/11/23 04:20 Urine Bilirubin Neg (Negative) 09/11/23 04:20 Urine Urobilinogen 1 mg/dL (Negative) H 09/11/23 04:20 Ur Leukocyte Esterase Trace (Negative) H 09/11/23 04:20 Urine RBC Rare /hpf (0-2) 09/11/23 04:20 Urine WBC Rare /hpf (0-5) 09/11/23 04:20 Ur Squamous Epith Cells None /hpf (0-5) 09/11/23 04:20 Amorphous Sediment Not Reportable 09/11/23 04:20 Urine Bacteria None /hpf (NONE) 09/11/23 04:20 Urine Mucus 2+ /hpf 09/11/23 04:20 Urine Sperm 1+ /hpf 09/11/23 04:20 Urine Opiates Screen Negative ng/mL (Negative) 09/11/23 04:20 Ur Barbiturates Screen Positive ng/mL (Negative) H 09/11/23 04:20 Ur Phencyclidine Scrn Negative ng/mL (Negative) 09/11/23 04:20 Ur Amphetamines Screen Positive ng/mL (Negative) H 09/11/23 04:20 U Benzodiazepines Scrn Negative ng/mL (Negative) 09/11/23 04:20 Urine Cocaine Screen Negative ng/mL (Negative) 09/11/23 04:20 U Marijuana (THC) Screen Positive ng/mL (Negative) H 09/11/23 04:20 No radiology studies performed this visit Discharge Plan Discharge Patient Disposition: Home Clinical Impression: Gastritis Condition: Stable Prescriptions: New sucralfate 1 gram tablet 1 g PO TID 28 Days Qty: 84 0RF No Action omeprazole 40 mg capsule,delayed release(DR/EC) 40 mg PO DAILY 28 Days Qty: 30 0RF Discharge Orders: Discharge ED (Routine); Ordered 09/11/23 Ordered By: Tank Farr Patient Instructions: Gastritis (ED), Opioid Safety, Pain Management Activity Restrictions/Additional Instructions: Medication as directed. Follow a clear liquid diet for the next 24 hours. Continue medication prescribed by urgent care. Return for fever, vomiting liquids or medications, other concerning symptoms. Coding Level of Care Code ED [employer] for Georges Singh
== END 2023-09-11 06:46 | disposition home or self-care (01) ==
PROVIDERS: Emergency Provider Emergency Medicine
DX: K29.70 Gastritis, unspecified, without bleeding (principal)
CPT/HCPCS: 36415; 80053; 80306; 81001; 83690; 85025; 86140; 99283; J2405

== ENCOUNTER 2024-02-21 22:23 | Emergency (ER) | payer OTHER, SELFPAY ==
[2024-02-21 22:24] VITALS: BP 140/88; PULSE 70; RESP 15; TEMP 36.6; O2SAT 99
[2024-02-21] MEDS: BUPivacaine 0.5% INJ 10 mL INJECTION (23:38)
[2024-02-21] MEDS: clindamycin 150 mg Capsule 300 MG PO (23:48)
[2024-02-22 00:09] VITALS: BP 132/83; PULSE 69; O2SAT 95
--- NOTE | 2024-02-22 00:46 | ED_ITS ---
Documented by User: NOEMY Malhotra 02/22/24 00:51 HPI - Dental/Oral General: Chief complaint: Dental/Oral Stated complaint: ToothAche Time Seen by Provider: 02/21/24 22:28 Source: patient Mode of arrival: ambulatory Limitations: no limitations History of Present Illness: Patient is a 28-year-old male presenting to the emergency department complaining of right upper and lower dental pain onset today. Patient notes he has a history of prior dental abscess and states this feels similar though much worse. He notes he was not able to get into a dentist at this time due to insurance reasons, though currently has an appointment scheduled in March. He notes the pain is radiating towards his right ear. He took one of his 's hydrocodone at home that seem to touch his pain, though it is still present. I offered him bedside dental block, to which she oblige his. He is not reporting any fevers, breathing difficulties, or other concerning symptoms at this time. MD Complaint: tooth pain Onset (ago): hour(s) Duration: constant Severity: severe Relieving factors: nothing Context: poor dental care Associated symptoms: Reports ear or mastoid pain; Denies fever(s) Treatment prior to arrival: other (hydrocodone) Review of Systems General: Reports: 10 or more systems reviewed and unremarkable except in HPI and below Const: Denies: fever(s), chills or fatigue Eyes: Denies: change in vision ENMT: Reports: dental pain and ear or mastoid pain Card: Denies: chest pain, palpitations, swelling of feet/ankles or lightheadedness Resp: Denies: dyspnea, productive cough or wheezing GI: Denies: abdominal pain, nausea, vomiting, diarrhea or constipation : Denies: flank pain, difficulty urinating, dysuria or urinary frequency Musc: Denies: neck pain, back pain or joint pain Skin/Breast: Denies: rash Neuro: Denies: headache(s), numbness in extremities or weakness in extremities PFSH ED PFSH: Medical History Varicocele Family History Mother No problems noted. Father , at age 56 Cancer Other Diabetes Social History (Reviewed 02/22/24 @ 00:48 by JULIO Malhotra Smoking and tobacco/nicotine status: never used tobacco/nicotine Alcohol intake: current Alcohol intake frequency: 0-2 Drinks per Day Substance/Drug Use: current Lives independently: No Household members: family Housing: House Marital status: Single Number of children: 0 Current occupational status: employed Physical Exam Const: COMMON NORMALS: no acute distress, patient oriented x3 and no limitations GENERAL APPEARANCE: cooperative, comfortable and well developed ORIENTATION/CONSCIOUSNESS: Yes awake, Yes oriented to person, Yes oriented to place and Yes oriented to time HENMT: COMMON NORMALS: normocephalic, atraumatic and hearing grossly normal bilaterally HEAD & SCALP: normocephalic and atraumatic TEETH & GINGIVA: Yes caries, Yes multiple restorations and Yes poor dentition OTHER: Moderate to severe reproducible tenderness palpation about the right lower and upper jaw. Evidence of gingival edema without active drainage or bleeding. Surrounding erythema noted. Eye: COMMON NORMALS: Equal, round and reactive pupils present, EOMs intact bilaterally and conjunctivae normal CONJUNCTIVA: Yes conjunctivae normal PUPIL: Yes Equal, round and reactive pupils present Neck/C-Spine: COMMON NORMALS: full ROM, supple and no JVD Resp: COMMON NORMALS: normal respiratory effort, No retractions, No use of accessory muscles and clear to auscultation bilaterally AUSCULTATION: clear to auscultation bilaterally Cardio: COMMON NORMALS: no JVD, regular rate, regular rhythm, No clicks present (Cardio), No murmurs present (Cardio) and No rub (Cardio) RATE: regular rate RHYTHM: regular rhythm Extremity: COMMON NORMALS: normal to inspection, full ROM and capillary refill normal Neuro: COMMON NORMALS: patient oriented x3, moves all extremities, no focal motor deficits and no sensory deficits noted SENSORIUM/ORIENTATION: Yes oriented to person, Yes oriented to place and Yes oriented to time Psych: COMMON NORMALS: mental status grossly normal and Normal thought process present THOUGHT PROCESS: Normal thought process present Skin: COMMON NORMALS: no rashes or lesions noted GENERAL SKIN EXAM: no rashes or lesions noted Procedures Nerve Block Nerve Block 1: Time out performed: No Local Anesthetic: bupivacaine 0.5% Amount of anesthesia used (mL): 5 Side: right Intraoral Nerve Block: superior alveolar Procedure Successful: Yes Patient Tolerated Procedure: well Complications: none Nerve Block 2: Time out performed: No Local Anesthetic: bupivacaine 0.5% Amount of anesthesia used (mL): 5 Side: right Intraoral Nerve Block: inferior alveolar Procedure Successful: Yes Patient Tolerated Procedure: well Complications: none Course Vital Signs: Vital signs: Vital Signs Temperature 97.9 F 02/21/24 22:24 Pulse Rate 69 02/22/24 00:09 Respiratory Rate 15 02/21/24 22:24 Blood Pressure 132/83 02/22/24 00:09 Pulse Oximetry 95 02/22/24 00:09 Oxygen Delivery Me thod Room Air 02/21/24 22:24 MDM - Dental/Oral Medical Decision Making Patient seen for dental pain. Has dental appointment scheduled in a month. Physical exam showed evidence of potential dental abscess, will be treated with antibiotic. Vitals stable on arrival. Nerve block performed on the inferior as well as superior alveolar nerve, patient noted immediate relief. He will be sent home with a few hydrocodone to take for breakthrough pain, and will continue taking clindamycin as he is allergic to penicillins. All other questions and concerns addressed at this time. Return precautions were given. No radiology studies performed this visit Discharge Plan Discharge Patient Disposition: Home Clinical Impression: Dental abscess Condition: Stable Prescriptions: New clindamycin HCl 300 mg capsule 300 mg PO Q12H 7 Days Qty: 14 0RF hydrocodone-acetaminophen 7.5-300 mg tablet 1 tab PO Q8H PRN (Reason: pain) Qty: 10 0RF hydrocodone-acetaminophen 5-325 mg tablet 1 tab PO Q6H PRN (Reason: pain) Qty: 10 0RF No Action omeprazole 40 mg capsule,delayed release(DR/EC) 40 mg PO DAILY 28 Days Qty: 30 0RF Discharge Orders: Discharge ED (Routine); Ordered 02/21/24 Ordered By: Carlos Bernardo Discharge Diet: Usual diet Discharge Activity: Increase activity as tolerated Patient Instructions: Opioid Safety, Pain Management Activity Restrictions/Additional Instructions: Clindamycin as prescribed. Pain medications as directed. Established with dentist as discussed. Follow-up with primary care for further evaluation. Return with any new or worsening symptoms. Coding Level of Care Code ED Sole Assessor for Chg Fwd Documented by User: NOEMY Pathak 02/22/24 11:40 HPI - Dental/Oral General: Chief complaint: Dental/Oral Stated complaint: ToothAche Time Seen by Provider: 02/21/24 22:28 [facility] ED PFSH: Medical History Varicocele Family History Mother No problems noted. Father , at age 56 Cancer Other Diabetes Social History Smoking and tobacco/nicotine status: never used tobacco/nicotine Alcohol intake: current Alcohol intake frequency: 0-2 Drinks per Day Substance/Drug Use: current Lives independently: No Household members: family Housing: House Marital status: Single Number of children: 0 Current occupational status: employed Course ED course: Addendum-I was contacted by [facility] on 02/21 regarding a prescription for 7.5 mg/300 mg hydrocodone that they did not have in stock and was asking to change it. I escripted a new prescription for 5 mg/325mg hydrocodone-same quanity. ES Vital Signs: Vital signs: Vital Signs Temperature 97.9 F 02/21/24 22:24 Pulse Rate 69 02/22/24 00:09 Respiratory Rate 15 02/21/24 22:24 Blood Pressure 132/83 02/22/24 00:09 Pulse Oximetry 95 02/22/24 00:09 Oxygen Delivery Me thod Room Air 02/21/24 22:24 Discharge Plan Discharge Patient Disposition: Home Clinical Impression: Dental abscess Condition: Stable Prescriptions: New clindamycin HCl 300 mg capsule 300 mg PO Q12H 7 Days Qty: 14 0RF hydrocodone-acetaminophen 7.5-300 mg tablet 1 tab PO Q8H PRN (Reason: pain) Qty: 10 0RF hydrocodone-acetaminophen 5-325 mg tablet 1 tab PO Q6H PRN (Reason: pain) Qty: 10 0RF No Action omeprazole 40 mg capsule,delayed release(DR/EC) 40 mg PO DAILY 28 Days Qty: 30 0RF Discharge Orders: Discharge ED (Routine); Ordered 02/21/24 Ordered By: Carlos Bernardo Discharge Diet: Usual diet Discharge Activity: Increase activity as tolerated Patient Instructions: Opioid Safety, Pain Management Activity Restrictions/Additional Instructions: Clindamycin as prescribed. Pain medications as directed. Established with dentist as discussed. Follow-up with primary care for further evaluation. Return with any new or worsening symptoms. Coding Level of Care Code ED Sole Assessor for Chg Fwd Documented by User: Juan Almanzar DO 02/22/24 14:59 HPI - Dental/Oral General: Chief complaint: Dental/Oral Stated complaint: ToothAche Time Seen by Provider: 02/21/24 22:28 [facility] ED PFSH: Medical History Varicocele Family History Mother No problems noted. Father , at age 56 Cancer Other Diabetes Social History Smoking and tobacco/nicotine status: never used tobacco/nicotine Alcohol intake: current Alcohol intake frequency: 0-2 Drinks per Day Substance/Drug Use: current Lives independently: No Household members: family Housing: House Marital status: Single Number of children: 0 Current occupational status: employed Course Vital Signs: Vital signs: Vital Signs Temperature 97.9 F 02/21/24 22:24 Pulse Rate 69 02/22/24 00:09 Respiratory Rate 15 02/21/24 22:24 Blood Pressure 132/83 02/22/24 00:09 Pulse Oximetry 95 02/22/24 00:09 Oxygen Delivery Me thod Room Air 02/21/24 22:24 MDM - Dental/Oral Medical Decision Making Patient seen for dental pain. Has dental appointment scheduled in a month. Physical exam showed evidence of potential dental abscess, will be treated with antibiotic. Vitals stable on arrival. Nerve block performed on the inferior as well as superior alveolar nerve, patient noted immediate relief. He will be sent home with a few hydrocodone to take for breakthrough pain, and will continue taking clindamycin as he is allergic to penicillins. All other questions and concerns addressed at this time. Return precautions were given. Chart reviewed Discharge Plan Discharge Patient Disposition: Home Clinical Impression: Dental abscess Condition: Stable Prescriptions: New clindamycin HCl 300 mg capsule 300 mg PO Q12H 7 Days Qty: 14 0RF hydrocodone-acetaminophen 7.5-300 mg tablet 1 tab PO Q8H PRN (Reason: pain) Qty: 10 0RF hydrocodone-acetaminophen 5-325 mg tablet 1 tab PO Q6H PRN (Reason: pain) Qty: 10 0RF No Action omeprazole 40 mg capsule,delayed release(DR/EC) 40 mg PO DAILY 28 Days Qty: 30 0RF Discharge Orders: Discharge ED (Routine); Ordered 02/21/24 Ordered By: Carlos Bernardo Discharge Diet: Usual diet Discharge Activity: Increase activity as tolerated Patient Instructions: Opioid Safety, Pain Management Activity Restrictions/Additional Instructions: Clindamycin as prescribed. Pain medications as directed. Established with dentist as discussed. Follow-up with primary care for further evaluation. Return with any new or worsening symptoms. Coding Level of Care Code ED Sole Assessor for Georges Singh
== END 2024-02-22 00:09 | disposition home or self-care (01) ==
PROVIDERS: Emergency Provider Physician Assistant
DX: K04.7 Periapical abscess without sinus (principal)
CPT/HCPCS: 64400; 99284; J3490

== ENCOUNTER → 2024-02-24 13:51 | Outpatient (BNVA) | payer OTHER, SELFPAY | PROVIDERS: Visit Provider Student in an Organized Health Care Education/Training Program | DX: M79.5 Residual foreign body in soft tissue (principal); M25.522 Pain in left elbow | CPT/HCPCS: 73080 ==

== ENCOUNTER 2024-02-29 12:21 | Emergency (ER) | payer OTHER, SELFPAY ==
[2024-02-29 12:29] VITALS: BP 115/67; PULSE 69; RESP 14; TEMP 36.3; O2SAT 98
--- NOTE | 2024-02-29 12:58 | ED_ITS ---
HPI - Dental/Oral General: Chief complaint: Dental/Oral Stated complaint: tooth pain Time Seen by Provider: 02/29/24 12:50 History of Present Illness: 28-year-old man who presents to the [facility] room with dental pain. He says he has been on Keflex for several days now and the pain has not gotten any better. He says he is try to get in with a dentist but they want $350 and he cannot afford that right now. I explained to him that I have no dental skills and that the dentist will be the only person who can ultimately fix this. However I feel like his antibiotic coverage could be improved given that he has not gotten better with the antibiotic he is on. He agrees with this plan. Review of Systems Narrative: Constitutional symptoms: Negative except as documented in HPI. Skin symptoms: Negative except as documented in HPI. Eye symptoms: Negative except as documented in HPI. ENMT symptoms: Negative except as documented in HPI. Respiratory symptoms: Negative except as documented in HPI. Cardiovascular symptoms: Negative except as documented in HPI. Gastrointestinal symptoms: Negative except as documented in HPI. Genitourinary symptoms: Negative except as documented in HPI. Musculoskeletal symptoms: Negative except as documented in HPI. Neurologic symptoms: Negative except as documented in HPI. Psychiatric symptoms: Negative except as documented in HPI. Endocrine symptoms: Negative except as documented in HPI. PFSH ED PFSH: Medical History Varicocele Family History Mother No problems noted. Father , at age 56 Cancer Other Diabetes Social History Smoking and tobacco/nicotine status: never used tobacco/nicotine Alcohol intake: current Alcohol intake frequency: 0-2 Drinks per Day Substance/Drug Use: current Lives independently: No Household members: family Housing: House Marital status: Single Number of children: 0 Current occupational status: employed Physical Exam Narrative: EXAM NARRATIVE: General: Alert, no acute distress. Skin: warm and dry Head: Normocephalic Neck: Trachea midline Eye: Extraocular movements are intact. Ears, nose, mouth and throat: Oral mucosa moist, right upper most posterior molar does appear to have surrounding infection. He has dental caries. Respiratory: Respirations are non-labored Musculoskeletal: Normal ROM Neurological: Alert and oriented, No focal neurological deficit observed. Psychiatric: Cooperative, appropriate mood & affect. Course Vital Signs: Vital signs: Vital Signs Temperature 97.4 F L 02/29/24 12:29 Pulse Rate 69 02/29/24 12:29 Respiratory Rate 14 02/29/24 12:29 Blood Pressure 115/67 02/29/24 12:29 Pulse Oximetry 98 02/29/24 12:29 Oxygen Delivery Me thod Room Air 02/29/24 12:29 MDM - Dental/Oral Medical Decision Making Assessment and plan: Dental abscess -Changing antibiotics coverage from Keflex to clindamycin. He is penicillin allergic so Augmentin is not an option. - Discharged home - Discussed plan with patient. Answered any questions. - Evaluation and treatment of this problem were appropriate in the emergency setting. No radiology studies performed this visit Discharge Plan Discharge Patient Disposition: Home Clinical Impression: Dental abscess Condition: Stable Prescriptions: New clindamycin HCl 300 mg capsule 600 mg PO Q8H 10 Days Qty: 60 0RF dexamethasone 6 mg tablet 6 mg PO DAILY 5 Days Qty: 5 0RF diclofenac sodium 50 mg tablet,delayed release (DR/EC) 50 mg PO Q12H Qty: 20 0RF No Action omeprazole 40 mg capsule,delayed release(DR/EC) 40 mg PO DAILY 28 Days Qty: 30 0RF hydrocodone-acetaminophen 7.5-300 mg tablet 1 tab PO Q8H PRN (Reason: pain) Qty: 10 0RF hydrocodone-acetaminophen 5-325 mg tablet 1 tab PO Q6H PRN (Reason: pain) Qty: 10 0RF Discharge Orders: Discharge ED (Routine); Ordered 02/29/24 Ordered By: Silvia Arias Discharge Diet: Advance as tolerated Discharge Activity: Resume usual activity Patient Instructions: Dental Abscess (ED) Activity Restrictions/Additional Instructions: Please follow-up with a dentist as soon as possible. Definitive care for a dental infection lies with dentistry. Thank you for choosing [facility] for your healthcare needs today. Please realize this is an emergency room and that we are providing you with a medical screening exam and this may not be complete and all inclusive of all the testing and or work up that you may need to determine your ailment or severity of your illness. You have been screened and evaluated and felt safe for discharge. Health conditions do change or evolve sometimes and as such it is important that you follow up with your Primary Doctor to be re checked, 3-5 days is a general good time frame for follow up. You are always welcome to return to the ED for re assessment if your symptoms are worsening or you have new concerns Coding Level of Care Code ED Participant Administrator for Georges Singh
== END 2024-02-29 13:04 | disposition home or self-care (01) ==
PROVIDERS: Emergency Provider Emergency Medicine
DX: K04.7 Periapical abscess without sinus (principal)
CPT/HCPCS: 99283

== ENCOUNTER 2024-03-29 09:31 | Day surgery (SDC) | payer OTHER, SELFPAY ==
[2024-03-29] VITALS (8 sets, daily range): BP systolic 105–124; BP diastolic 57–69; PULSE 51–61; RESP 18; TEMP 36.1–36.6; O2SAT 97–100; BMI 21.6
--- NOTE | 2024-03-29 10:20 | W.PM.OPSFHP ---
Same Day Surgery H&P Indication for Procedure/HPI DATE OF PROCEDURE: March 29, 2024 CHIEF COMPLAINT/INDICATIONFOR SURGICAL PROCEDURE: Left elbow foreign body PREOP DIAGNOSIS: Left elbow foreign body PLANNED PROCEDURE: Operation Date: 03/29/24 11:35 Proposed Procedures p Foreign Body Upper Extremity/LEFT ELBOW FOREIGN BODY REMOVAL(Left) - Mian Kendrick DO Medications/Allergies* Home Medications Medication Instructions Recorded Confirmed Type clindamycin HCl 300 mg capsule 300 mg PO DAILY 03/28/24 03/28/24 History Allergies/Adverse Reactions Allergy/AdvReac Type Severity Reaction Status Date / Time Penicillins Allergy ALGY-Rash Verified 02/29/24 12:32 Pertinent History/Comorbid Conditions* Medical History (Updated 03/08/24 @ 00:01 by SHIRIN Arenas) Varicocele Family History (Updated 05/19/22 @ 15:51 by Nathaniel Lee) Father, at age 56 Diabetes Cancer Father Social History Smoking and tobacco/nicotine status: never used tobacco/nicotine Alcohol intake: current Alcohol intake frequency: 0-2 Drinks per Day Substance/Drug Use: current Lives independently: No Household members: family Housing: House Marital status: Single Number of children: 0 Current occupational status: employed Pertinent Exam Findings alert, oriented x 3, operative site marked and procedure specific exam findings Please refer to detailed orthopedic examination on 02/24/2024 listed below: Left elbow demonstrates a healed laceration dorsal proximal aspect of the subcutaneous border of the forearm and still large palpable fluctuant feeling cyst with a palpable firm loose body within this cyst is appreciated. There is no signs of infection erythema or drainage noted at the site. This is tender to palpation for patient gross motor and sensory is intact to the radial/ulnar/median nerve distribution. Patient is able to perform all cardinal hand movements with no issues. Recommendations Surgery/Procedure today Other Plans: Plan to proceed to the OR today for left elbow foreign body removal. Patient understands and Zetts procedure risk benefits complication alternatives of surgery and through shared decision make elects proceed with surgical intervention all questions answered this time. Coding Level of Care Code Acute Code for Luisjaye Fwd
[2024-03-29] MEDS: acetaminophen 1,000 MG/100 ML PIGGYBACK 400 MG IV (10:40)
[2024-03-29] MEDS: sodium chloride 0.9% 1,000 ML 30 ML IV (10:42)
[2024-03-29] MEDS: ketorolac 30 mg/mL INJ IVP (10:44)
[2024-03-29] MEDS: scopolamine 1.5 Patch 1 PATCH TRANSDERMA (10:49)
--- NOTE | 2024-03-29 11:03 | P.ANESASSM_ITS ---
Pre-Anesthetic Assessment Height/Weight: Height 1.8 m Weight 70.307 kg Temp Pulse Resp BP Pulse Ox O2 Del Method 97.9 F 60 18 106/58 100 Room Air 03/29/24 10:07 03/29/24 10:07 03/29/24 10:07 03/29/24 10:07 03/29/24 10:07 03/29/24 10:19 Preop Diagnosis: Left elbow foreign body Operation Date: 03/29/24 11:35 Proposed Procedures p Foreign Body Upper Extremity/LEFT ELBOW FOREIGN BODY REMOVAL(Left) - Mian Kendrick DO Familial anesthetic complications: None Was Beta Karen taken within 24 hours: N/A Was Clonidine taken within 24 hours: N/A Last intake: Intake Last Liquid Date 03/28/24 Last Liquid Time 23:00 Last Solid Date 03/28/24 Last Solid Time 23:00 Social Alcohol (socially) and Tobacco Exam alert, oriented x 3, clear to auscultation bilaterally and regular rate & rhythm Airway Mallampati: Class II Dentition: chipped and other (mulitple missing, dental abscess but no airway i nfringement) Hepatic ? hx hep c Anesthetic Plan ASA status: 2 Anesthesia: Choice Risk of > 500 ml blood loss (7ml/kg in children): No Medications/Allergies Home Medications Medication Instructions Recorded Confirmed Last Taken Type clindamycin HCl 300 mg capsule 300 mg PO DAILY 03/28/24 03/28/24 03/28/24 History Allergies Allergy/AdvReac Type Severity Reaction Status Date / Time Penicillins Allergy ALGY-Rash Verified 02/29/24 12:32 Current Medications Generic Name Dose Route Start Last Admin Trade Name Ryne PRN Reason Stop Dose Admin Sodium Chloride 1,000 mls @ 30 mls/hr 03/29/24 10:00 03/29/24 10:42 Sodium Chloride 0.9% IV 03/30/24 09:59 30 mls/hr .Q24H MOSHE Administration PFSH Anesthesia Medical History Varicocele Family History Mother No problems noted. Father , at age 56 Cancer Other Diabetes Social History Smoking and tobacco/nicotine status: never used tobacco/nicotine Alcohol intake: current Alcohol intake frequency: 0-2 Drinks per Day Substance/Drug Use: current Lives independently: No Household members: family Housing: House Marital status: Single Number of children: 0 Current occupational status: employed Data Anesthesia Cardiac Studies: No Data to Display
[2024-03-29] MEDS: ceFAZolin 2,000 MG in sodium chloride 0.9% (plus) 50 ML 100 MG IV (11:24)
[2024-03-29] MEDS: ROPivacaine 0.5% SDV 30 mL 25 MG INJECTION (11:50)
[2024-03-29] MEDS: lidocaine-epi 1% 20 mL INJ 5 ML INJECTION (11:50)
--- NOTE | 2024-03-29 12:00 | P.BOP_ITS ---
Date of Procedure: [March 29, 2024] Surgeon: [Dr. Kendrick DO] Truck Dock Material Mover(s): [Guy Kendrick PA-C] Procedure(s) performed: [Left elbow foreign body removal] Findings of the procedure(s): [Foreign body-rock encapsulated by tissue] Estimated blood loss: [2 ml] Specimen(s) removed: [n/a] Post-operative diagnosis: [Foreign body- rock ]
--- NOTE | 2024-03-29 12:02 | PM.PACU ---
PACU note Narrative: Patient is a 28-year-old male that just underwent a left elbow foreign body removal. Patient transferred to PACU in stable condition. Pain is well controlled. Dressing on elbow is dry and in place. patient's fingers are warm and well-perfused. Patient can wiggle fingers. normal cap refill under 2 seconds. Radial pulse 2+. Patient has normal elbow range of motion. Sensation to hand is intact. Exam: awake Disposition: discharged
--- NOTE | 2024-03-29 12:20 | PM.OP ---
Operative Report Date of procedure: March 29, 2024 Pre-op diagnosis: Left elbow foreign body Post-op diagnosis: Same Procedure done: Left elbow foreign body removal Specimens removed/disposition: Piece of rock?foreign body removed Surgeon: Mian Kendrick DO Senior Marketing Engineer: Guy Kendrick PA-C: PA was necessary for assistance in this case with hand positioning to execute the procedure, retraction and protection of neurovascular structures as well as to assist with wound closure and dressing application. Anesthesia: MAC and Local Estimated blood loss: 2mL 11 minutes IV fluids: 300 mL Complications: None Findings: See operative report narrative Condition: stable Disposition: same day Brief History: Patient seen and examined in the outpatient setting findings consistent with left elbow foreign body. Patient's continue to have subcutaneous tissue prominence as well as pain associated with this foreign body on the lateral aspect of his elbow over the proximal ulna. This is confirmed on x-ray no signs of infection he originally was can have this taken out roughly a year ago and now has insurance and would like to have this removed we talked about treatment options nonoperative and operative invention at this point time would like to have this removed patient elects proceed with surgical intervention understands risk benefits complication alternatives of surgery and through shared decision making elects proceed with surgical intervention of left elbow foreign body removal. All questions answered at this time. Consent was reviewed and signed with patient. Procedure: Patient seen eval in the preoperative holding area. Consent was reviewed and signed patient correct extremity was then subsequently marked patient was then seen evaluated by anesthesia once cleared by anesthesia was taken back to the operative suite patient was kept on a hospital gurney and armboard applied to the left upper extremity patient had nonsterile tourniquet applied left upper arm patient then subsequently underwent anesthesia per the anesthesia part was appropriate anesthetized left upper extremity was prepped and draped standard orthopedic fashion. Final timeout performed. Patient received appropriate preoperative antibiotics. Esmarch tourniquet was used exsanguinate left upper extremity tourniquet insufflated to 250 mmHg. Patient had a palpable prominence foreign body over the dorsal and lateral aspect of the elbow over the proximal ulna this is in the subcutaneous region I made a direct longitudinal incision directly over this this did have an encapsulated tissue around the foreign body/rock I subsequently used scalpel excision as well as Bovie electrocautery staying in plane of the subcutaneous tissue circumferentially dissecting around the encapsulation and then finding it at its base and then subsequently transecting this with the bipolar electrocautery I then cut this open and then identified the large piece of rock which patient wished to have to take home this was placed in a specimen cup and given to patient after surgery. At this point in time subsequently thoroughly irrigated the wound bed tourniquet deflated hemostasis satisfactory and subsequently closed this in standard fashion with interrupted 3-0 Vicryl suture and nylon suture for skin. Patient patient was then dressed with Xeroform 4 x 4's ABD and a soft dressing with Diego wrap. Patient tolerated the procedure without issues or complications. Patient taken back in stable condition. Disposition: Patient taken back exam condition recovering well. Will see appropriate discharge structures as well as pain medication postoperatively and follow-up in the office in 2 weeks. Will be allowed to weight-bear as tolerated to left upper extremity.
--- NOTE | 2024-03-29 12:55 | ANE.PACU2 ---
Inpatient post-anesthesia follow up: Airway intact: Yes Vital signs: Temperature 97.4 F Pulse Rate 54 Respiratory Rate 18 Blood Pressure 122/64 Pulse Oximetry 99 Oxygen Delivery Me thod Room Air Oxygen Flow Rate 8 Fraction of Inspir ed Oxygen Hydration adequate: Yes Nausea and vomiting: No Pain level: 1 Mental status: Baseline
== END 2024-03-29 12:59 | disposition home or self-care (01) ==
PROVIDERS: Visit Provider Student in an Organized Health Care Education/Training Program
PROC: (CPT 24200; principal; 2024-03-29 11:25)
DX: S51.042A Puncture wound with foreign body of left elbow, initial encounter (principal); X58.XXXA Exposure to other specified factors, initial encounter
CPT/HCPCS: 24200; J0131; J0690; J1885; J2250; J2704; J2795; J7030

== ENCOUNTER → 2024-07-11 09:18 | Outpatient (BNVA) | payer OTHER, SELFPAY | DX: J02.9 Acute pharyngitis, unspecified (principal) | CPT/HCPCS: 87071; 87880 ==